=== PATIENT | female | born 1980 | race African-American/Black ===

== ENCOUNTER 2016-09-16 00:48 | Emergency (ER) | payer BC ==
[~2016-09-16] VITALS: Ht 154.9 cm; Wt 81.6 kg
[2016-09-16 01:04] VITALS: BP 142/61
--- NOTE | 2016-09-16 01:20 | PHYS DOC ---
Past Medical History Past Medical History: No Pertinent History Past Surgical History: Cholecystectomy, Alcohol Use: None Drug Use: None Adult General Chief Complaint Chief Complaint: SORE THROAT HPI HPI Patient is a 36 year old female who presents with sore throat. Patient reports this morning she started having a runny pain in her throat, which is worse with swallowing. Tonight she started to have a little bit of headache. She also reports cough and nasal congestion. No fever. She tried gargling with salt water with no improvement. No other acute complaints. Review of Systems Review of Systems Constitutional: Denies fever or chills Eyes: Denies change in visual acuity or eye pain HENT: Nasal congestion, sore throat Respiratory: Cough. Denies shortness of breath Cardiovascular: Denies chest pain GI: Denies abdominal pain, nausea, vomiting, bloody stools or diarrhea : Denies dysuria or hematuria Musculoskeletal: Denies back pain or joint pain Integument: Denies rash or skin lesions Neurologic: Headache. Denies focal weakness or sensory changes Current Medications Current Medications Current Medications Medications (Trade) Dose Ordered Sig/Benji Start Time Stop Time Status Last Admin Dose Admin Ibuprofen (Motrin) 600 mg 1X ONCE 09/16/16 01:30 09/16/16 01:31 DC 09/16/16 01:36 600 MG Allergies Allergies Allergies Coded Allergies Type Severity Reaction Last Updated Verified No Known Drug Allergies 09/16/16 No Physical Exam Physical Exam Constitutional: Well developed, well nourished, no acute distress, non-toxic appearance HENT: Normocephalic, atraumatic, bilateral external ears normal. Oropharynx mildly erythematous without exudate Eyes: EOMI, conjunctiva normal, no discharge Neck: Normal range of motion, no stridor Cardiovascular: Heart rate normal, regular rhythm, no murmur Lungs & Thorax: Bilateral breath sounds clear to auscultation Abdomen: Bowel sounds normal, soft, non-distended, no TTP Skin: Warm, dry, no erythema, no rash Extremities: No obvious deformity, no edema Neurologic: Alert and oriented X 3, no gross deficits noted Current Patient Data Vital Signs Vital Signs Date Time Temp Pulse Resp B/P Pulse Ox O2 Delivery O2 Flow Rate FiO2 09/16/16 01:04 98.2 76 16 97 Room Air 98.2 09/16/16 01:04 142/61 EKG EKG [] Radiology/Procedures Radiology/Procedures [] Course & Med Decision Making Course & Med Decision Making Pertinent Labs and Imaging studies reviewed. (See chart for details) Patient is 36-year-old female who presents with throat. Given cough and nasal congestion I suspect this is due to a virus. Regardless will check rapid strep test. Dose of oral ibuprofen ordered for relief of symptoms. Rapid strep test negative. Discussed results with patient. Will discharge home with instructions for follow-up, return precautions. Dragon Disclaimer Dragon Disclaimer This electronic medical record was generated, in whole or in part, using a voice recognition dictation system. Departure Departure Impression: Primary Impression: Viral pharyngitis Disposition: HOME, SELF-CARE Condition: STABLE Referrals: [facility] (PCP) Patient Instructions: Viral Pharyngitis Additional Instructions: Thank you for allowing us to provide care today in the Emergency Department. Take the provided medication as directed. Schedule a follow up appointment with your primary care doctor. Return promptly to the Emergency Department if you develop any new or concerning symptoms. Scripts Naproxen 125 Mg/5 Ml Oral.[id number] Mg PO BID PRN PAIN #1 BOTTLE Prov:SHIV FERGUSON MD 09/16/16 SHIV FERGUSON MD Sep 16, 2016 01:20
[2016-09-16] MEDS ORDERED: IBUPROFEN 100 MG/5 ML ORAL.SUSP. PO ONE (01:30)
[2016-09-16] MEDS ORDERED: NAPR125O4 PO (01:49)
[2016-09-16 07:43] LABS: NEGATIVE OBC STREP NEG; POSITIVE OBC STREP POS
== END 2016-09-16 02:05 | disposition home or self-care (01) ==
LOC: ER 00:48
DX: J02.9 Acute pharyngitis, unspecified (principal)
CPT/HCPCS: 87070; 87880; 99283